=== PATIENT | male | born 1955 | race Caucasian/White ===

== ENCOUNTER 2017-05-19 06:55 | Day surgery (SDC) | payer MEDICARE ==
[2017-05-10 14:20] VITALS: BMI 33.5
[2017-05-19] MEDS ORDERED: Diazepam 5 MG TAB ONE (07:20)
[2017-05-19] MEDS ORDERED: Diazepam 10 MG/2 ML SYRINGE ONE (07:20)
[2017-05-19] MEDS ORDERED: diphenhydrAMINE HCl 25 MG CAP ONE (07:21)
[2017-05-19 08:12] LABS: ALT (SGPT) Less than 7 U/L (8-55); AST (SGOT) 15 U/L (5-34); Alkaline Phosphatase 73 U/L (40-150); Anion Gap 14 mmol/L (10-20); BUN (Urea Nitrogen) 16 mg/dL (8.4-25.7); Bilirubin, Total 0.9 mg/dL (0.2-1.2); Calc. Creatinine Clearance 149 mL/min (70-130); Calcium 10.2 mg/dL (7.8-10.44); Carbon Dioxide 26 mmol/L (22-29); Chloride 106 mmol/L (98-107); Estimated GFR-MDRD Greater than 90; Globulin 3.1 g/dL (2.4-3.5); Protein, Total 7.3 g/dL (6.0-8.3)
[2017-05-19] MEDS ORDERED: Heparin 10,000 UNITS/1 ML VIAL ONE (08:21)
[2017-05-19] MEDS ORDERED: Nitroglycerin 100MG/250ML BOT 250 ML ONE (08:21)
[2017-05-19] MEDS ORDERED: Midazolam HCl 2 mg/2 ml Vial ONE (08:50)
[2017-05-19] MEDS ORDERED: Fentanyl 100 MCG/2 ML VIAL ONE (08:50)
== END 2017-05-19 13:10 | disposition home or self-care (01) ==
LOC: CCL 06:55
PROVIDERS: ATTEND Internal Medicine
DX: I25.10 Atherosclerotic heart disease of native coronary artery without angina pectoris (principal); I10 Essential (primary) hypertension; Z79.899 Other long term (current) drug therapy
CPT/HCPCS: 80053; 80061; 93458; 93798; C1769; 36415; 99152; J1644; J2250; J3010; J3360